=== PATIENT | female | born 1980 | race Two or more races ===

== ENCOUNTER 2017-10-09 13:58 | Outpatient (CLI) | payer OTHER ==
[~2017-10-09 13:58] MED LIST: ALEVE220 M1 PO; ALLEGRA ALLERG180 MG PO; AMBIEN10 MG; AMOX1TAB12 PO; CATAFLAM50 MG PO; CEFADROXIL500 MG PO; CELEXA20 MG; CLONAZEPAM0.5 MG; CORTISPORIN EAR10 M2 OT; FLEXERIL 10 MG PO; FLEXERIL10 MG PO; FLONASE ALLERG9.9 ML NS; FLONASE16 GM NS; GILTUSS TR TAB1 EACH PO; LOTRISONE LOTIO30 ML TP; TORADOL60 MG IM; TRAM1TAB PO; VOLTAREM 50 MG PO; ZITHROMAX200 MG PO; ZYRTEC10 MG PO
== END 2017-10-09 14:11 | disposition home or self-care (01) ==
LOC: SONOGRAMA 13:58
DX: N94.0 Mittelschmerz (principal); N94.89 Other specified conditions associated with female genital organs and menstrual cycle; R10.2 Pelvic and perineal pain

== ENCOUNTER 2017-11-16 06:37 | Outpatient (CLI) | payer OTHER | END 2017-11-16 06:43 | disposition home or self-care (01) | LOC: LAB 06:37 | DX: Z00.00 Encounter for general adult medical examination without abnormal findings (principal); I10 Essential (primary) hypertension; E03.9 Hypothyroidism, unspecified; E78.00 Pure hypercholesterolemia, unspecified; N39.0 Urinary tract infection, site not specified; Z11.4 Encounter for screening for human immunodeficiency virus [HIV]; E55.9 Vitamin D deficiency, unspecified; Z21 Asymptomatic human immunodeficiency virus [HIV] infection status; R79.9 Abnormal finding of blood chemistry, unspecified; R79.89 Other specified abnormal findings of blood chemistry ==

== ENCOUNTER → 2018-01-26 | Emergency (ER) | payer OTHER ==
[~2018-01-26] VITALS: Ht 149.9 cm; Wt 95.3 kg
[~2018-01-26] MED LIST changes: +KETO10TA2 PO; +LEVAQUIN750 MG PO; +LEXAPRO5 MG
== END | disposition home or self-care (01) ==
LOC: ER 19:47
DX: N39.0 Urinary tract infection, site not specified (principal)

== ENCOUNTER 2018-03-20 08:32 | Emergency (ER) | payer OTHER ==
[~2018-03-20] VITALS: Ht 149.9 cm; Wt 95.3 kg
[2018-03-20] MEDS ORDERED: CLONAZEPAM0.5 MG (08:47)
== END 2018-03-20 11:00 | disposition home or self-care (01) ==
LOC: ER 08:32
DX: J02.8 Acute pharyngitis due to other specified organisms (principal)

== ENCOUNTER 2018-07-03 07:46 | Outpatient (CLI) | payer OTHER | END 2018-07-03 08:10 | disposition home or self-care (01) | LOC: LAB 07:46 | DX: E66.01 Morbid (severe) obesity due to excess calories (principal); Z13.1 Encounter for screening for diabetes mellitus; E55.9 Vitamin D deficiency, unspecified; E03.8 Other specified hypothyroidism ==

== ENCOUNTER 2018-07-15 15:33 | Outpatient (CLI) | payer OTHER | END 2018-07-15 15:59 | disposition home or self-care (01) | LOC: LAB 15:33 | DX: J11.1 Influenza due to unidentified influenza virus with other respiratory manifestations (principal); J06.9 Acute upper respiratory infection, unspecified ==

== ENCOUNTER → 2018-08-24 | Outpatient (CLI) | payer OTHER | END | disposition home or self-care (01) | LOC: LAB 14:54 | DX: J11.1 Influenza due to unidentified influenza virus with other respiratory manifestations (principal); J20.0 Acute bronchitis due to Mycoplasma pneumoniae; J02.8 Acute pharyngitis due to other specified organisms ==

== ENCOUNTER 2019-01-06 17:34 | Outpatient (CLI) | payer OTHER | END 2019-01-06 18:11 | disposition home or self-care (01) | LOC: LAB 17:34 | DX: J11.1 Influenza due to unidentified influenza virus with other respiratory manifestations (principal); J11.81 Influenza due to unidentified influenza virus with encephalopathy ==

== ENCOUNTER 2019-05-28 10:42 | Outpatient (CLI) | payer OTHER | END 2019-05-28 10:56 | disposition home or self-care (01) | LOC: LAB 10:42 | DX: E78.49 Other hyperlipidemia (principal); E55.9 Vitamin D deficiency, unspecified; Z00.00 Encounter for general adult medical examination without abnormal findings; R10.84 Generalized abdominal pain; R42 Dizziness and giddiness; R10.2 Pelvic and perineal pain ==

== ENCOUNTER 2019-05-29 16:23 | Outpatient (CLI) | payer OTHER | END 2019-05-29 16:29 | disposition home or self-care (01) | LOC: LAB 16:23 | DX: R10.9 Unspecified abdominal pain (principal); R42 Dizziness and giddiness; R10.2 Pelvic and perineal pain; E78.49 Other hyperlipidemia; E55.9 Vitamin D deficiency, unspecified; Z00.00 Encounter for general adult medical examination without abnormal findings ==

== ENCOUNTER → 2019-07-06 | Outpatient (CLI) | payer OTHER | END | disposition home or self-care (01) | LOC: LAB 09:29 | DX: J11.1 Influenza due to unidentified influenza virus with other respiratory manifestations (principal) ==

== ENCOUNTER → 2019-08-02 | Outpatient (CLI) | payer OTHER | END | disposition home or self-care (01) | LOC: RAD 08:03 | DX: M54.5 Low back pain (principal) ==

== ENCOUNTER → 2020-05-01 | Outpatient (CLI) | payer OTHER | END | disposition home or self-care (01) | LOC: PPH VACUNA 09:00 | DX: Z23 Encounter for immunization (principal) ==

== ENCOUNTER 2020-07-03 10:54 | Outpatient (CLI) | payer OTHER | END 2020-07-03 15:00 | disposition home or self-care (01) | LOC: PPH VACUNA 10:54 | DX: Z23 Encounter for immunization (principal) ==

== ENCOUNTER 2020-09-08 07:31 | Outpatient (CLI) | payer OTHER | END 2020-09-08 07:35 | disposition home or self-care (01) | LOC: LAB 07:31 | PROVIDERS: ATTEND Obstetrics & Gynecology | DX: E03.8 Other specified hypothyroidism (principal); Z00.00 Encounter for general adult medical examination without abnormal findings; I10 Essential (primary) hypertension; E78.00 Pure hypercholesterolemia, unspecified; N39.0 Urinary tract infection, site not specified; Z11.4 Encounter for screening for human immunodeficiency virus [HIV]; E55.9 Vitamin D deficiency, unspecified; Z21 Asymptomatic human immunodeficiency virus [HIV] infection status; R79.89 Other specified abnormal findings of blood chemistry ==

== ENCOUNTER 2020-09-20 09:44 | Outpatient (CLI) | payer OTHER | END 2020-09-20 09:59 | disposition home or self-care (01) | LOC: MAMO-SONO 09:44 | PROVIDERS: ATTEND Obstetrics & Gynecology | DX: N63.0 Unspecified lump in unspecified breast (principal); N64.59 Other signs and symptoms in breast; N64.89 Other specified disorders of breast; R10.2 Pelvic and perineal pain ==

== ENCOUNTER 2021-03-12 10:51 | Outpatient (CLI) | payer OTHER | END 2021-03-12 10:56 | disposition home or self-care (01) | LOC: RAD 10:51 | PROVIDERS: ATTEND Physical Medicine & Rehabilitation | DX: M54.5 Low back pain (principal); M54.2 Cervicalgia ==

== ENCOUNTER 2021-04-19 09:47 | Outpatient (CLI) | payer OTHER | END 2021-04-19 09:57 | disposition home or self-care (01) | LOC: RAD 09:47 | DX: R07.89 Other chest pain (principal); J16.8 Pneumonia due to other specified infectious organisms ==

== ENCOUNTER 2021-04-25 11:00 | Outpatient (CLI) | payer OTHER | END 2021-04-25 14:33 | disposition home or self-care (01) | LOC: PPH VACUNA 11:00 | PROVIDERS: ATTEND Emergency Medicine Pediatric Emergency Medicine | DX: Z23 Encounter for immunization (principal) ==

== ENCOUNTER 2021-05-31 08:47 | Emergency (ER) | payer OTHER ==
[~2021-05-31] VITALS: Ht 149.9 cm; Wt 94.3 kg
[2021-05-31] MEDS ORDERED: ZITHROMAX500 MG PO (10:36)
[2021-05-31] MEDS ORDERED: OSEL75CA PO (10:36)
== END 2021-05-31 11:27 | disposition home or self-care (01) ==
LOC: ER 08:47
DX: J06.9 Acute upper respiratory infection, unspecified (principal); Z03.818 Encounter for observation for suspected exposure to other biological agents ruled out

== ENCOUNTER 2021-07-15 07:44 | Emergency (ER) | payer OTHER ==
[~2021-07-15] VITALS: Ht 149.9 cm; Wt 95.3 kg
[~2021-07-15 07:44] MED LIST changes: +OSEL75CA PO; +ZITHROMAX500 MG PO
== END 2021-07-15 14:04 | disposition home or self-care (01) ==
LOC: ER 07:44
DX: B34.9 Viral infection, unspecified (principal); Z20.822 Contact with and (suspected) exposure to COVID-19

== ENCOUNTER 2021-08-01 14:30 | Outpatient (CLI) | payer OTHER | END 2021-08-01 14:45 | disposition home or self-care (01) | LOC: PPH VACUNA 14:30 | PROVIDERS: ATTEND Emergency Medicine Pediatric Emergency Medicine | DX: Z23 Encounter for immunization (principal) ==

== ENCOUNTER 2021-10-26 15:23 | Emergency (ER) | payer OTHER ==
[~2021-10-26] VITALS: Ht 149.9 cm; Wt 95.3 kg
[2021-10-26] MEDS ORDERED: SULFAMETHOXAZO1 EACH PO (19:49)
== END 2021-10-26 20:06 | disposition home or self-care (01) ==
LOC: ER 15:23
DX: N39.0 Urinary tract infection, site not specified (principal)

== ENCOUNTER 2021-12-19 07:00 | Emergency (ER) | payer OTHER ==
[~2021-12-19] VITALS: Ht 154.9 cm; Wt 88.5 kg
[~2021-12-19 07:00] MED LIST changes: +SULFAMETHOXAZO1 EACH PO
== END 2021-12-19 10:49 | disposition home or self-care (01) ==
LOC: ER 07:00
DX: M25.512 Pain in left shoulder (principal)

== ENCOUNTER 2021-12-24 08:00 | Outpatient (CLI) | payer OTHER | END 2021-12-24 08:05 | disposition home or self-care (01) | LOC: RAD 08:00 | PROVIDERS: ATTEND Chiropractor | DX: M54.12 Radiculopathy, cervical region (principal); M54.40 Lumbago with sciatica, unspecified side; M47.817 Spondylosis without myelopathy or radiculopathy, lumbosacral region; M50.10 Cervical disc disorder with radiculopathy, unspecified cervical region; M99.01 Segmental and somatic dysfunction of cervical region; M99.02 Segmental and somatic dysfunction of thoracic region; M99.03 Segmental and somatic dysfunction of lumbar region; M99.04 Segmental and somatic dysfunction of sacral region; M99.05 Segmental and somatic dysfunction of pelvic region ==

== ENCOUNTER 2022-02-12 08:11 | Outpatient (CLI) | payer OTHER | END 2022-02-12 08:25 | disposition home or self-care (01) | LOC: LAB 08:11 | DX: I11.9 Hypertensive heart disease without heart failure (principal); R00.2 Palpitations; E66.9 Obesity, unspecified; D64.9 Anemia, unspecified; N39.0 Urinary tract infection, site not specified ==

== ENCOUNTER → 2022-03-12 07:03 | Outpatient (CLI) | payer OTHER | END | disposition home or self-care (01) | LOC: LAB 07:03 | PROVIDERS: ATTEND Internal Medicine Hematology & Oncology | DX: D50.8 Other iron deficiency anemias (principal); K29.40 Chronic atrophic gastritis without bleeding; K90.0 Celiac disease ==

== ENCOUNTER 2022-04-02 14:00 | Outpatient (CLI) | payer OTHER ==
[~2022-04-02 14:00] MED LIST changes: +DICLOFENAC SODI75 MG PO; +METAXALONE800 MG PO
== END 2022-04-02 14:05 | disposition home or self-care (01) ==
LOC: PPH VACUNA 14:00
PROVIDERS: ATTEND Emergency Medicine Pediatric Emergency Medicine
DX: Z23 Encounter for immunization (principal)

== ENCOUNTER 2022-04-18 07:48 | Outpatient (CLI) | payer OTHER | END 2022-04-18 08:16 | disposition home or self-care (01) | LOC: RAD 07:48 | DX: J10.00 Influenza due to other identified influenza virus with unspecified type of pneumonia (principal) ==

== ENCOUNTER → 2022-09-30 | Outpatient (CLI) | payer OTHER | END | disposition home or self-care (01) | LOC: NUCLEAR 08:00 | PROVIDERS: ATTEND Internal Medicine Cardiovascular Disease | DX: R00.2 Palpitations (principal); I11.9 Hypertensive heart disease without heart failure ==

== ENCOUNTER → 2022-10-02 08:13 | Outpatient (CLI) | payer OTHER | END | disposition home or self-care (01) | LOC: LAB 08:13 | PROVIDERS: ATTEND Internal Medicine | DX: R00.2 Palpitations (principal); D50.9 Iron deficiency anemia, unspecified; D64.9 Anemia, unspecified; E03.9 Hypothyroidism, unspecified ==

== ENCOUNTER → 2023-03-09 | Emergency (ER) | payer OTHER ==
[~2023-03-09] VITALS: Ht 149.9 cm; Wt 86.2 kg
== END | disposition home or self-care (01) ==
LOC: ER 07:52
DX: U07.1 COVID-19 (principal)

== ENCOUNTER 2023-03-30 14:28 | Outpatient (CLI) | payer OTHER | END 2023-03-30 14:42 | disposition home or self-care (01) | LOC: RAD 14:28 | PROVIDERS: ATTEND General Practice | DX: R76.11 Nonspecific reaction to tuberculin skin test without active tuberculosis (principal) ==

== ENCOUNTER 2023-05-26 11:00 | Outpatient (CLI) | payer OTHER | END 2023-05-26 11:10 | disposition home or self-care (01) | LOC: PPH VACUNA 11:00 | PROVIDERS: ATTEND Emergency Medicine Pediatric Emergency Medicine | DX: Z23 Encounter for immunization (principal) | CPT/HCPCS: 90686; G0008 ==

== ENCOUNTER 2023-06-10 08:09 | Outpatient (CLI) | payer OTHER | END 2023-06-10 08:24 | disposition home or self-care (01) | LOC: MAMO-SONO 08:09 | PROVIDERS: ATTEND Obstetrics & Gynecology | DX: N63.0 Unspecified lump in unspecified breast (principal); N64.59 Other signs and symptoms in breast; N64.9 Disorder of breast, unspecified; N94.0 Mittelschmerz; R10.2 Pelvic and perineal pain; N94.89 Other specified conditions associated with female genital organs and menstrual cycle; Z12.31 Encounter for screening mammogram for malignant neoplasm of breast ==

== ENCOUNTER → 2023-06-17 08:47 | Outpatient (CLI) | payer OTHER ==
[2023-06-17 10:29] LABS: HEMATOCRIT 29.4 % (36.0-45.00); HEMOGLOBIN 9.2 g/dL (12.0-15.00); MEAN CORPUSCULAR HEMOGLOBIN 20.7 pg (27.00-32.0); MEAN CORPUSCULAR HGB CONC 31.3 g/dl (32.0-36.0); PLATELET COUNT 365 K/uL (150-450); RED BLOOD COUNT 4.42 M/uL (4.00-6.00); RED CELL DISTRIBUTION WIDTH 20.4 % (11.5-14.5)
[2023-06-17 10:30] LABS: MEAN CELL VOLUME 66.4 fL (80.00-100.00)
[2023-06-17 10:47] LABS: PH,URINE 6.5 (5.0-8.0); URINE APPEARANCE Clear; URINE BILIRRUBIN Negative (NEGATIVE); URINE BLOOD Negative; URINE COLOR Yellow; URINE GLUCOSE Negative (NEGATIVE); URINE LEUKOCYTE Negative; URINE NITRATE Negative; URINE PROTEIN Negative (NEGATIVE); URINE UROBILINOGEN 0.2 E.U./dl
[2023-06-17 10:53] LABS: URINE BACTERIA 88.1 uL (0.0-1933); URINE EPITHELIAL CELLS 9.2 uL (0.0-38.8)
[2023-06-17 11:01] LABS: ALBUMIN 3.3 gm/dL (3.4-5.0); BILIRUBIN TOTAL 0.5 mg/dL (0.3-1.2); CALCIUM 8.8 mg/dL (8.5-10.1); CREATININE SERUM 0.6 mg/dL (0.55-1.02); GFR 110.17; GLOBULINA 3.8 G/DL (2.4-3.5); POTASSIUM 4.44 mEq/L (3.5-5.1); T4 FREE 1.01 NG/ML (0.76-1.46); TOTAL PROTEIN 7.1 gm/dL (6.4-8.2); TSH 2.52 uIU/mL (0.358-3.74)
[2023-06-17 11:51] LABS: URINE RBC 1.1 uL (0.0-20.8); URINE WBC 1.3 uL (0.0-23.2)
== END | disposition home or self-care (01) ==
LOC: LAB 08:47
PROVIDERS: ATTEND Obstetrics & Gynecology
DX: Z00.00 Encounter for general adult medical examination without abnormal findings (principal); I10 Essential (primary) hypertension; E03.9 Hypothyroidism, unspecified; E78.00 Pure hypercholesterolemia, unspecified; N39.0 Urinary tract infection, site not specified; Z11.4 Encounter for screening for human immunodeficiency virus [HIV]; Z12.11 Encounter for screening for malignant neoplasm of colon; E55.9 Vitamin D deficiency, unspecified; Z21 Asymptomatic human immunodeficiency virus [HIV] infection status; R79.9 Abnormal finding of blood chemistry, unspecified; R78.89 Finding of other specified substances, not normally found in blood

== ENCOUNTER 2023-06-18 15:20 | Outpatient (CLI) | payer OTHER ==
[2023-06-18 15:50] LABS: ob NEGATIVE (NEGATIVE)
== END 2023-06-18 15:23 | disposition home or self-care (01) ==
LOC: LAB 15:20
PROVIDERS: ATTEND Obstetrics & Gynecology
DX: Z00.00 Encounter for general adult medical examination without abnormal findings (principal); I10 Essential (primary) hypertension; E03.9 Hypothyroidism, unspecified; E78.00 Pure hypercholesterolemia, unspecified; N39.0 Urinary tract infection, site not specified; Z11.4 Encounter for screening for human immunodeficiency virus [HIV]; Z12.11 Encounter for screening for malignant neoplasm of colon; E55.9 Vitamin D deficiency, unspecified; Z21 Asymptomatic human immunodeficiency virus [HIV] infection status; R79.9 Abnormal finding of blood chemistry, unspecified; R79.89 Other specified abnormal findings of blood chemistry

== ENCOUNTER 2023-08-06 08:48 | Inpatient (IN) | payer OTHER ==
[~2023-08-06] VITALS: Ht 149.9 cm; Wt 88.9 kg
[2023-08-06 10:09] LABS: HEMATOCRIT 28.7 % (36.0-45.00); MEAN CORPUSCULAR HGB CONC 30.9 g/dl (32.0-36.0); PLATELET COUNT 376 K/uL (150-450); RED BLOOD COUNT 4.34 M/uL (4.00-6.00); RED CELL DISTRIBUTION WIDTH 19.5 % (11.5-14.5)
[2023-08-06 10:10] LABS: HEMOGLOBIN 8.8 g/dL (12.0-15.00); MEAN CELL VOLUME 66.1 fL (80.00-100.00); MEAN CORPUSCULAR HEMOGLOBIN 20.2 pg (27.00-32.0)
[2023-08-06 10:23] LABS: INR 1.01; PARTIAL THROMBOPLASTIN TIME 28.3 SECONDS (22.0-34.0); PROTHROMBIN TIME 10.6 SECONDS (9.0-11.5)
[2023-08-06 10:25] LABS: PH,URINE 6.5 (5.0-8.0); URINE APPEARANCE Clear; URINE BILIRRUBIN Negative (NEGATIVE); URINE BLOOD Negative; URINE COLOR Yellow; URINE GLUCOSE Negative (NEGATIVE); URINE LEUKOCYTE Negative; URINE NITRATE Negative; URINE PROTEIN Negative (NEGATIVE); URINE UROBILINOGEN 0.2 E.U./dl
[2023-08-06 10:30] LABS: URINE EPITHELIAL CELLS 2.1 uL (0.0-38.8)
[2023-08-06] MEDS ORDERED: [UNRECOGNIZED DRUG - OTHER] (10:31)
[2023-08-06] MEDS ORDERED: EXCEDRIN MIGRA1 EAC1 PO (10:31)
[2023-08-06 10:36] LABS: ALBUMIN 3.6 gm/dL (3.4-5.0); BILIRUBIN TOTAL 0.53 mg/dL (0.3-1.2); CALCIUM 8.9 mg/dL (8.5-10.1); CREATININE SERUM 0.65 mg/dL (0.55-1.02); GFR 100.45; GLOBULINA 3.7 G/DL (2.4-3.5); POTASSIUM 4.12 mEq/L (3.5-5.1); TOTAL PROTEIN 7.3 gm/dL (6.4-8.2); URINE BACTERIA 2.5 uL (0.0-1933); URINE RBC 1.1 uL (0.0-20.8); URINE WBC 0.7 uL (0.0-23.2)
[2023-08-10 12:11] LABS: HEMATOCRIT 32.5 % (36.0-45.00); HEMOGLOBIN 10.2 g/dL (12.0-15.00); MEAN CELL VOLUME 70.3 fL (80.00-100.00); MEAN CORPUSCULAR HGB CONC 31.4 g/dl (32.0-36.0); PLATELET COUNT 311 K/uL (150-450); RED BLOOD COUNT 4.62 M/uL (4.00-6.00); RED CELL DISTRIBUTION WIDTH 22.5 % (11.5-14.5)
[2023-08-10 17:10] LABS: HEMOGLOBIN 11.3 g/dL (12.0-15.00); MEAN CORPUSCULAR HEMOGLOBIN 21.8 pg (27.00-32.0); MEAN CORPUSCULAR HGB CONC 31.4 g/dl (32.0-36.0); PLATELET COUNT 332 K/uL (150-450); RED BLOOD COUNT 5.18 M/uL (4.00-6.00); RED CELL DISTRIBUTION WIDTH 22.3 % (11.5-14.5)
[2023-08-10 17:11] LABS: MEAN CELL VOLUME 69.5 fL (80.00-100.00)
[2023-08-12] MEDS ORDERED: IBUPROFEN800 MG PO (06:51)
[2023-08-12] MEDS ORDERED: POLY119PG PO (06:51)
[2023-08-12] MEDS ORDERED: GABAPENTIN300 MG PO (06:51)
[2023-08-12] MEDS ORDERED: SIMETHICONE125 M1 PO (06:51)
== END 2023-08-12 10:34 | disposition home or self-care (01) | DRG 743 ==
LOC: O/R 08-10 05:20 → SURH 08-10 07:00 → OB/GYN 08-10 10:31
PROVIDERS: ADMIT Obstetrics & Gynecology; ATTEND Obstetrics & Gynecology
PROC: 0UN20ZZ Release Bilateral Ovaries, Open Approach (ICD-10-PCS; 2023-08-10)
PROC: 0TNB0ZZ Release Bladder, Open Approach (ICD-10-PCS; 2023-08-10)
PROC: 0UN90ZZ Release Uterus, Open Approach (ICD-10-PCS; 2023-08-10)
PROC: 0DNW0ZZ Release Peritoneum, Open Approach (ICD-10-PCS; 2023-08-10)
PROC: 0UT90ZZ Resection of Uterus, Open Approach (ICD-10-PCS; principal; 2023-08-10 07:00)
DX: N80.03 Adenomyosis of the uterus (principal); N72 Inflammatory disease of cervix uteri; Z20.822 Contact with and (suspected) exposure to COVID-19; N73.6 Female pelvic peritoneal adhesions (postinfective)

== ENCOUNTER 2023-10-29 16:21 | Emergency (ER) | payer OTHER ==
[~2023-10-29] VITALS: Ht 149.9 cm; Wt 92.1 kg
[~2023-10-29 16:21] MED LIST changes: +EXCEDRIN MIGRA1 EAC1 PO; +GABAPENTIN300 MG PO; +IBUPROFEN800 MG PO; +POLY119PG PO; +SIMETHICONE125 M1 PO; +[UNRECOGNIZED DRUG - OTHER]
== END 2023-10-29 22:58 | disposition home or self-care (01) ==
LOC: ER 16:21
DX: R51.9 Headache, unspecified (principal)

== ENCOUNTER 2024-05-16 08:31 | Outpatient (CLI) | payer OTHER | END 2024-05-16 08:36 | disposition home or self-care (01) | LOC: RAD 08:31 | PROVIDERS: ATTEND General Practice | DX: J06.9 Acute upper respiratory infection, unspecified (principal) ==

== ENCOUNTER 2024-05-19 03:30 | Outpatient (CLI) | payer OTHER | END 2024-05-19 04:00 | disposition home or self-care (01) | LOC: PPH VACUNA 03:30 | PROVIDERS: ATTEND Emergency Medicine Pediatric Emergency Medicine | DX: Z23 Encounter for immunization (principal) ==

== ENCOUNTER 2024-07-04 08:58 | Outpatient (CLI) | payer OTHER ==
[2024-07-04 10:12] LABS: PH,URINE 7.5 (5.0-8.0); URINE APPEARANCE Clear; URINE BILIRRUBIN Negative (NEGATIVE); URINE BLOOD Negative; URINE COLOR Yellow; URINE GLUCOSE Negative (NEGATIVE); URINE KETONE Negative (NEGATIVE); URINE LEUKOCYTE Negative; URINE NITRATE Negative; URINE PROTEIN Negative (NEGATIVE)
[2024-07-04 10:15] LABS: URINE BACTERIA 299.8 uL (0.0-1933); URINE EPITHELIAL CELLS 17.3 uL (0.0-38.8); URINE RBC 5.1 uL (0.0-20.8); URINE WBC 1.8 uL (0.0-23.2)
[2024-07-04 10:20] LABS: HEMATOCRIT 38.7 % (36.0-45.00); HEMOGLOBIN 12.6 g/dL (12.0-15.00); MEAN CELL VOLUME 78.4 fL (80.00-100.00); MEAN CORPUSCULAR HEMOGLOBIN 25.5 pg (27.00-32.0); MEAN CORPUSCULAR HGB CONC 32.5 g/dl (32.0-36.0); PLATELET COUNT 300 K/uL (150-450); RED BLOOD COUNT 4.93 M/uL (4.00-6.00); RED CELL DISTRIBUTION WIDTH 17.1 % (11.5-14.5)
[2024-07-04 11:23] LABS: ALBUMIN 3.5 gm/dL (3.4-5.0); BILIRUBIN TOTAL 0.68 mg/dL (0.3-1.2); CHOL HDL RATIO 3.8 (0-5.0); CREATININE SERUM 0.62 mg/dL (0.55-1.02); GFR 105.56; GLOBULINA 3.6 G/DL (2.4-3.5); POTASSIUM 4.51 mEq/L (3.5-5.1); T4 FREE 0.86 NG/ML (0.76-1.46); T4 TOTAL 8.77 UG/DL (4.8-13.9); TOTAL PROTEIN 7.1 gm/dL (6.4-8.2); TSH 3.15 uIU/mL (0.358-3.74)
[2024-07-04 11:38] LABS: URIC ACID 4.2 mg/dL (2.5-7.5)
[2024-07-04 12:28] LABS: T3 TOTAL 1.22 ng/ml (0.846-2.02); VITAMIN D3 25 HYDROXY 21.28 ng/ml (30-120)
== END 2024-07-04 08:59 | disposition home or self-care (01) ==
LOC: LAB 08:58
PROVIDERS: ATTEND General Practice
DX: R79.9 Abnormal finding of blood chemistry, unspecified (principal); E88.9 Metabolic disorder, unspecified; R77.0 Abnormality of albumin; N39.0 Urinary tract infection, site not specified; E78.00 Pure hypercholesterolemia, unspecified; E03.8 Other specified hypothyroidism; E55.9 Vitamin D deficiency, unspecified; E11.9 Type 2 diabetes mellitus without complications

== ENCOUNTER 2024-07-04 09:37 | Outpatient (CLI) | payer OTHER | END 2024-07-04 09:38 | disposition home or self-care (01) | LOC: SONOGRAMA 09:37 | PROVIDERS: ATTEND General Practice | DX: E04.1 Nontoxic single thyroid nodule (principal); E04.2 Nontoxic multinodular goiter ==

== ENCOUNTER 2024-07-18 11:07 | Outpatient (CLI) | payer OTHER ==
[2024-07-18 12:21] LABS: ob NEGATIVE (NEGATIVE)
== END 2024-07-18 23:00 | disposition home or self-care (01) ==
LOC: LAB 11:07
PROVIDERS: ATTEND General Practice
DX: R79.9 Abnormal finding of blood chemistry, unspecified (principal); E88.9 Metabolic disorder, unspecified; R77.0 Abnormality of albumin

== ENCOUNTER 2024-08-03 11:58 | Outpatient (CLI) | payer OTHER | END 2024-08-03 12:06 | disposition home or self-care (01) | LOC: MAMO-SONO 11:58 | DX: N63.0 Unspecified lump in unspecified breast (principal); N64.59 Other signs and symptoms in breast; N64.9 Disorder of breast, unspecified; M54.51 Vertebrogenic low back pain; M54.50 Low back pain, unspecified; M54.6 Pain in thoracic spine; M54.2 Cervicalgia; M79.18 Myalgia, other site ==

== ENCOUNTER → 2024-08-23 | Outpatient (CLI) | payer OTHER ==
[2024-08-23 10:30] LABS: HEMATOCRIT 38.4 % (36.0-45.00); HEMOGLOBIN 12.7 g/dL (12.0-15.00); MEAN CELL VOLUME 78.4 fL (80.00-100.00); MEAN CORPUSCULAR HGB CONC 33.1 g/dl (32.0-36.0); PLATELET COUNT 294 K/uL (150-450); RED BLOOD COUNT 4.89 M/uL (4.00-6.00); RED CELL DISTRIBUTION WIDTH 16.4 % (11.5-14.5)
[2024-08-23 10:38] LABS: PH,URINE 5.5 (5.0-8.0); URINE APPEARANCE Clear; URINE BILIRRUBIN Negative (NEGATIVE); URINE BLOOD Negative; URINE COLOR Yellow; URINE GLUCOSE Negative (NEGATIVE); URINE KETONE Trace (NEGATIVE); URINE LEUKOCYTE Negative; URINE NITRATE Negative; URINE PROTEIN Negative (NEGATIVE); URINE UROBILINOGEN 0.2 E.U./dl
[2024-08-23 10:39] LABS: URINE BACTERIA 7.3 uL (0.0-1933); URINE RBC 2.2 uL (0.0-20.8)
[2024-08-23 11:36] LABS: ALBUMIN 3.4 gm/dL (3.4-5.0); BILIRUBIN TOTAL 0.87 mg/dL (0.3-1.2); CALCIUM 9.3 mg/dL (8.5-10.1); CHOL HDL RATIO 3.1 (0-5.0); CREATININE SERUM 0.59 mg/dL (0.55-1.02); GFR 111.78; GLOBULINA 3.6 G/DL (2.4-3.5); POTASSIUM 4.09 mEq/L (3.5-5.1); T4 FREE 0.9 NG/ML (0.76-1.46); TSH 2.49 uIU/mL (0.358-3.74)
== END | disposition home or self-care (01) ==
LOC: LAB 09:45
PROVIDERS: ATTEND Obstetrics & Gynecology
DX: I10 Essential (primary) hypertension (principal); E03.9 Hypothyroidism, unspecified; Z00.00 Encounter for general adult medical examination without abnormal findings; N39.0 Urinary tract infection, site not specified; Z11.4 Encounter for screening for human immunodeficiency virus [HIV]; Z12.11 Encounter for screening for malignant neoplasm of colon; E55.9 Vitamin D deficiency, unspecified; Z21 Asymptomatic human immunodeficiency virus [HIV] infection status; R79.9 Abnormal finding of blood chemistry, unspecified; R79.89 Other specified abnormal findings of blood chemistry

== ENCOUNTER 2024-08-27 07:48 | Emergency (ER) | payer OTHER ==
[~2024-08-27] VITALS: Ht 149.9 cm; Wt 94.8 kg
[2024-08-27] MEDS ORDERED: LEXAPRO20 MG PO (07:57)
[2024-08-27 09:11] LABS: HEMATOCRIT 39.5 % (36.0-45.00); HEMOGLOBIN 12.6 g/dL (12.0-15.00); MEAN CORPUSCULAR HEMOGLOBIN 25.9 pg (27.00-32.0); MEAN CORPUSCULAR HGB CONC 31.9 g/dl (32.0-36.0); PLATELET COUNT 306 K/uL (150-450); RED BLOOD COUNT 4.88 M/uL (4.00-6.00); RED CELL DISTRIBUTION WIDTH 16.2 % (11.5-14.5)
[2024-08-27] MEDS ORDERED: GUAIFENESIN 200 MG/10 ML BLIST.PACK PO ONE ×2 (11:21→11:30)
== END 2024-08-27 11:55 | disposition home or self-care (01) ==
LOC: ER 07:51
PROVIDERS: General Practice
DX: H83.09 Labyrinthitis, unspecified ear (principal); J00 Acute nasopharyngitis [common cold]; Z20.822 Contact with and (suspected) exposure to COVID-19

== ENCOUNTER 2025-02-20 06:55 | Outpatient (CLI) | payer OTHER ==
[~2025-02-20 06:55] MED LIST changes: +LEXAPRO20 MG PO
[2025-02-20 10:14] LABS: BUN CREA RATIO 19.0 (7.0-25.0); CREATININE SERUM 0.53 mg/dL (0.55-1.02); GFR 125.9; GLUCOSE FASTING 82.0 mg/dL (65-100); OSMOLALITY SERUM 276.0 MOSM/KG (275-295)
== END 2025-02-20 06:57 | disposition home or self-care (01) ==
LOC: LAB 06:55
PROVIDERS: ATTEND Otolaryngology
DX: R22.1 Localized swelling, mass and lump, neck (principal)

== ENCOUNTER 2025-02-20 07:09 | Outpatient (CLI) | payer OTHER | END 2025-02-20 07:16 | disposition home or self-care (01) | LOC: TOM 07:09 | PROVIDERS: ATTEND Otolaryngology | DX: M54.2 Cervicalgia (principal) ==